=== PATIENT | female | born 1960 | race Caucasian/White ===

== ENCOUNTER 2024-11-04 07:24 | Outpatient (CLI) | payer OTHER | END 2024-11-04 07:32 | disposition home or self-care (01) | LOC: TOM 07:24 | PROVIDERS: ATTEND Internal Medicine | DX: R10.9 Unspecified abdominal pain (principal); R19.06 Epigastric swelling, mass or lump | CPT/HCPCS: 74177; Q9965 ==

== ENCOUNTER 2025-01-27 07:17 | Outpatient (CLI) | payer OTHER | END 2025-01-27 07:18 | disposition home or self-care (01) | LOC: NUCLEAR 07:17 | PROVIDERS: ATTEND Internal Medicine Gastroenterology | DX: R10.9 Unspecified abdominal pain (principal) | CPT/HCPCS: 78227; A9537 ==

== ENCOUNTER 2025-04-12 09:26 | Outpatient (CLI) | payer OTHER | END 2025-04-12 09:31 | disposition home or self-care (01) | LOC: RAD 09:26 | PROVIDERS: ATTEND Internal Medicine | DX: I10 Essential (primary) hypertension (principal); R05.9 Cough, unspecified ==